=== PATIENT | female | born 1955 | race Caucasian/White ===

== ENCOUNTER 2018-11-23 17:05 | Emergency (ER) | payer OTHER ==
[~2018-11-23] VITALS: Ht 157.5 cm; Wt 101.6 kg
--- NOTE | 2018-11-23 17:21 | NUR ---
pt rec'd to er c/o fell today missed her step rt knee pain and back 8/10 family at bedside vssAWAITING EVALUATION BY ER PROVIDER.
[2018-11-23] MEDS ORDERED: ACETAMINOPHEN 325 MG TABLET ONE (17:38)
--- NOTE | 2018-11-23 17:41 | NUR ---
pt c/o pain rt wrist xrays done of knee and rt hand tyenol 650 mg po given per md order
[2018-11-23] MEDS ORDERED: ACETAMINOPHEN 325 MG TABLET PO ONE (18:00)
--- NOTE | 2018-11-23 18:57 | NUR ---
pt amb to br with assistance voided back to bed
[2018-11-23 19:33] VITALS: BP 154/71
--- NOTE | 2018-11-23 19:33 | NUR ---
Patient discharged to home in stable condition. Written and verbal after care instructions given. Patient verbalizes understanding of instruction.
== END 2018-11-23 19:34 | disposition home or self-care (01) ==
LOC: ER 17:05
DX: S39.012A Strain of muscle, fascia and tendon of lower back, initial encounter (principal); M25.561 Pain in right knee; M25.531 Pain in right wrist; I10 Essential (primary) hypertension; E11.9 Type 2 diabetes mellitus without complications; K21.9 Gastro-esophageal reflux disease without esophagitis; W01.0XXA Fall on same level from slipping, tripping and stumbling without subsequent striking against object, initial encounter; Y93.89 Activity, other specified; Y92.89 Other specified places as the place of occurrence of the external cause; Y99.8 Other external cause status
CPT/HCPCS: 73110; 73564-TC

== ENCOUNTER 2019-08-30 07:11 | Emergency (ER) | payer OTHER ==
[~2019-08-30] VITALS: Ht 152.4 cm; Wt 106.1 kg
--- NOTE | 2019-08-30 07:35 | NUR ---
HTN "checked BP this am was high son got worried", to ER bed 1, hooked to monitor, 190/95mmhg upon arrival. Dr Osman at bedside
--- NOTE | 2019-08-30 07:54 | NUR ---
ABLE SEAMAN AT BEDSIDE
--- NOTE | 2019-08-30 08:00 | NUR ---
chaperoned tech during ekg
[2019-08-30 08:18] VITALS: BP 187/92
--- NOTE | 2019-08-30 08:18 | NUR ---
Patient discharged to home in stable condition. Written and verbal after care instructions given. Patient verbalizes understanding of instruction.
== END 2019-08-30 08:19 | disposition home or self-care (01) ==
LOC: ER 07:13
DX: I10 Essential (primary) hypertension (principal); E11.9 Type 2 diabetes mellitus without complications; K21.9 Gastro-esophageal reflux disease without esophagitis

== ENCOUNTER 2020-08-06 01:21 | Emergency (ER) | payer OTHER ==
[~2020-08-06] VITALS: Ht 162.6 cm; Wt 90.7 kg
--- NOTE | 2020-08-06 01:24 | NUR ---
PT BIBDAUGHTER C/O WORSENING RT LEG PAIN X2 MONTHS, BUT GETTING WORSE OVER THE PAST 2 HOURS. PT AAOX4 BREATHING EVENLY AND UNLABORED. PT STATES SHE CAN "BEAR WEIGHT, BUT IT IS BECOMING HARDER" PT DAUGHTER STATES THAT PT HAS TAKEN PAIN MEDICATION, BUT NO RELIEF. SKIN IS WARM, DRY, AND INTACT. PT ATTACHED TO MONITOR AND POX. PT GIVEN BLANKET AND CALL LIGHT WITHIN REACH.
--- NOTE | 2020-08-06 01:59 | NUR ---
URINE OBTAINED AND SENT TO LAB
--- NOTE | 2020-08-06 02:02 | NUR ---
PT TAKEN TO CT
[2020-08-06 02:08] LABS: BILIRUBIN,URINE NEGATIVE (NEGATIVE); COLOR,URINE YELLOW (YELLOW); LEUKOCYTE ESTERASE ,URINE NEGATIVE (NEGATIVE); NITRITE, URINE NEGATIVE (NEGATIVE); PH,URINE 7.5 (5.0-8.0); PROTEIN,URINE NEGATIVE (NEGATIVE); UGLUCOSE NEGATIVE (NEGATIVE); UROBILINOGEN,URINE 0.2 EU/dL (0.2)
--- NOTE | 2020-08-06 02:11 | NUR ---
RETURNED FROM CT
[2020-08-06] MEDS ORDERED: HYDR-4209 PO (03:04)
--- NOTE | 2020-08-06 03:07 | NUR ---
Patient discharged to home in stable condition. Written and verbal after care instructions given. Patient verbalizes understanding of instruction. Pt ambulatory with a steady gait
[2020-08-06 03:17] VITALS: BP 170/91
== END 2020-08-06 03:07 | disposition home or self-care (01) ==
LOC: ER 01:26
DX: M54.31 Sciatica, right side (principal); R60.0 Localized edema; R10.9 Unspecified abdominal pain; I10 Essential (primary) hypertension; K21.9 Gastro-esophageal reflux disease without esophagitis; E11.9 Type 2 diabetes mellitus without complications
CPT/HCPCS: 93971-TC

== ENCOUNTER 2022-02-08 19:52 | Inpatient (IN) | payer MEDICARE, OTHER ==
[~2022-02-08] VITALS: Ht 157.5 cm; Wt 109.3 kg
[~2022-02-08 19:52] MED LIST: HYDR-4209 PO
--- NOTE | 2022-02-08 20:15 | NUR ---
BIBS FOR C/O R SIDED CP RADIATIING TO R SHOULDER X 2 HOURS. PATIENT ALERT AND ORIENTED X4. AMBULATORY WITH NON LABORED BREATHING IN BED 11 ON MONITOR AND POX, AWAITING MD STALLWORTH.
--- NOTE | 2022-02-08 20:33 | NUR ---
BLOOD COLLECTED AND SENT TO LAB
--- NOTE | 2022-02-08 20:33 | NUR ---
EMT AT BEDSIDE FOR EKG
--- NOTE | 2022-02-08 20:37 | NUR ---
20g IV ESTABLISHED AT . UNABLE TO COLLECTED BLOOD. PHLEBTOMIST INFORMED FOR BLOOD DRAW.
--- NOTE | 2022-02-08 20:38 | NUR ---
GONZALO COLLECTED AND SENT TO LAB
[2022-02-08 21:23] LABS: BASOPHILS % (AUTO) 0.5 % (0.0-2.0); EOSINOPHILS % (AUTO) 1.5 % (0.0-6.0); HEMATOCRIT 42 % (33-45); HEMOGLOBIN 14.4 g/dL (11.5-14.8); LYMPHOCYTES # (AUTO) 1.6 K/uL (0.8-4.8); LYMPHOCYTES % (AUTO) 25.7 % (20.0-44.0); MEAN CORPUSCULAR HGB CONC 34 g/dl (31.0-36.0); MEAN CORPUSCULAR VOLUME 89 fL (82-100); MONOCYTES # (AUTO) 0.7 K/uL (0.1-1.30); NEUTROPHILS # (AUTO) 3.8 K/uL (1.8-8.9); NEUTROPHILS % (AUTO) 61.3 % (43.0-81.0); PLATELET COUNT (AUTO) 158 K/uL (150-450); RED BLOOD CELL COUNT(AUTO) 4.77 MIL/uL (4.0-5.2); WHITE BLOOD COUNT (AUTO) 6.1 K/uL (4.3-11.0)
[2022-02-08 21:43] LABS: CARBON DIOXIDE 30 mmol/L (21-32); CHLORIDE 103 mmol/L (98-107); CREATININE 0.7 mg/dL (0.6-1.3); GLUCOSE 166 mg/dL (74-106); POTASSIUM 3.5 mmol/L (3.5-5.1); SODIUM SERUM 139 mmol/L (136-145); UREA NITROGEN, BLOOD 18 mg/dL (7-18)
--- NOTE | 2022-02-08 22:52 | NUR ---
BED 117-2
[2022-02-08] MEDS ORDERED: MAGNESIUM HYDROXIDE 30 ML UDC PO PRN (23:00)
[2022-02-08] MEDS ORDERED: hydrALAZINE HCL IV 20 MG VIAL IV PRN (23:00)
[2022-02-08] MEDS ORDERED: ZOLPIDEM TARTRATE 5 MG TABLET PO PRN (23:00)
[2022-02-08] MEDS ORDERED: Z GUARD REMEDY 4 OZ OINT TP PRN (23:00)
[2022-02-08] MEDS ORDERED: INSULIN REGULAR, HUMAN 100 UNIT/ML 3 ML VIAL SQ PRN (23:00)
[2022-02-08] MEDS ORDERED: NITROGLYCERIN 0.4 MG/TAB BOTTLE SL ONE ×2 (23:00)
[2022-02-08] MEDS ORDERED: ENOXAPARIN SODIUM 40 MG/0.4 ML DISP.SYRIN SQ SCH (23:00)
[2022-02-08] MEDS ORDERED: MORPHINE SULFATE INJ 2 MG/ML DISP.SYRIN IV PRN (23:00)
[2022-02-08] MEDS ORDERED: ONDANSETRON HCL/PF 4 MG/2 ML VIAL IVP PRN (23:00)
[2022-02-08] MEDS ORDERED: ACETAMINOPHEN 325 MG TABLET PO PRN (23:00)
[2022-02-08] MEDS ORDERED: MAG HYDROX/AL HYDROX/SIMETH 30 ML UDC PO PRN (23:00)
[2022-02-08] MEDS ORDERED: DEXTROSE 50%-WATER 50 ML DISP.SYRIN IV PRN (23:00)
--- NOTE | 2022-02-08 23:39 | NUR ---
CALLED FOR REPORT. RN WILL CALL BACK
--- NOTE | 2022-02-09 00:02 | NUR ---
REPORT GIVEN TO SOURAV
--- NOTE | 2022-02-09 00:15 | NUR ---
0015 Admitted from ER 66 year old female via [facility] with Dx of Chest pain. Patient is awake and oriented x 4. Able to ambulate to bed from [facility] and to bathroom without assistance. Wolof speaking. On room air. Denies chest pain when asked. Vital signs taken and recorded. Admission care and assessment done. No skin breakdown noted when assessed. PIV on left hand intact with no signs of infiltration noted. Connected to security monitor. NSR in the 70s no ectopies. Kept comfortable. Call light placed within reach and instructed patient to call for assistance.
--- NOTE | 2022-02-09 00:21 | NUR ---
PT TRANSPORTED TO ROOM 117-2 ON CARDIAC PER ACLS
[2022-02-09 04:00] VITALS: BP 136/77
--- NOTE | 2022-02-09 05:59 | NUR ---
RN NOTE PT IN BED, SLEEPING. SAMI BUT CAN SPEAK SIMPLE BOLIVIAN. CURRENTLY ON RA, TOLERATING WELL. SR ON TELE MONITOR WITH HR >60. O2 SAT AT 97%. NO S/SX OF ACUTE RESPI DISTRESS NOTED AT THIS TIME. PT DENIES PAIN BUT SAYS SHE HAS HEADACHE. PT TOOK NITROGLYCERIN PRIOR TO GOING TO HOSPITAL. ALL VS STABLE. SKIN INTACT, NO PRESSURE ULCER NOTED. AMBULATORY WITH BRP. AWAITING CARDIO CONSULT TODAY. WILL ENDORSE TO AM SHIFT NURSE FOR BRENDA.
[2022-02-09 06:30] LABS: BASOPHILS % (AUTO) 0.2 % (0.0-2.0); EOSINOPHILS % (AUTO) 1.9 % (0.0-6.0); HEMATOCRIT 41 % (33-45); HEMOGLOBIN 14.2 g/dL (11.5-14.8); LYMPHOCYTES # (AUTO) 2.1 K/uL (0.8-4.8); MEAN CORPUSCULAR HGB CONC 34 g/dl (31.0-36.0); MEAN CORPUSCULAR VOLUME 88 fL (82-100); MONOCYTES # (AUTO) 0.5 K/uL (0.1-1.30); MONOCYTES % (AUTO) 8.2 % (2.0-12.0); NEUTROPHILS # (AUTO) 3.6 K/uL (1.8-8.9); NEUTROPHILS % (AUTO) 56.7 % (43.0-81.0); PLATELET COUNT (AUTO) 167 K/uL (150-450); RED BLOOD CELL COUNT(AUTO) 4.71 MIL/uL (4.0-5.2); WHITE BLOOD COUNT (AUTO) 6.4 K/uL (4.3-11.0)
--- NOTE | 2022-02-09 07:00 | NUR ---
RN NOTE RECEIVED PATIENT IN BED RESTING ALERT ORIENTED X4 VERBALLY RESPONSIVE BRAZILIAN SPEAKING,ON ROOM AIR O2:96% IV SITE IS ON LEFT HAND INTACT PATENT,AMBULATORY,CONTIENT BOWEL/BLADDER,SAFETY MEASURE IMPLEMENT BED IN LOW POSITION AND LOCKED,CALL LIGHT WITHIN REACH CONTINUE TO MONITOR.
[2022-02-09 07:01] LABS: CALCIUM, SERUM 8.8 mg/dL (8.5-10.1); CREATININE 0.6 mg/dL (0.6-1.3); PHOSPHORUS 3.6 mg/dL (2.5-4.9); POTASSIUM 3.4 mmol/L (3.5-5.1)
[2022-02-09 07:11] LABS: THYROID STIMULATING HORMONE 7.514 uIU/mL (0.358-3.74)
[2022-02-09] MEDS ORDERED: BLOOD SUGAR DIAGNOSTIC 1 EACH STRIP IN SCH (07:30)
[2022-02-09 08:00] VITALS: BP 146/84
[2022-02-09] MEDS ORDERED: ASPI-1420 PO (08:04)
[2022-02-09] MEDS ORDERED: ERGO500093 PO (08:04)
[2022-02-09] MEDS ORDERED: FURO40TA5 PO (08:04)
[2022-02-09] MEDS ORDERED: SIMV10TA98 PO (08:04)
[2022-02-09] MEDS ORDERED: AMLO-362 PO (08:04)
[2022-02-09] MEDS ORDERED: PROP20TA19 PO (08:04)
[2022-02-09] MEDS ORDERED: PANTOPRAZOLE 40 MG VIAL IV SCH (09:00)
[2022-02-09] MEDS ORDERED: ASPIRIN 81 MG TAB.CHEW PO SCH (09:00)
[2022-02-09] MEDS ORDERED: VALSARTAN 80 MG TABLET PO SCH (09:30)
[2022-02-09] MEDS ORDERED: ATORVASTATIN 40 MG TABLET PO SCH (09:30)
[2022-02-09 09:52] VITALS: BP 146/84
[2022-02-09] MEDS ORDERED: POTASSIUM CHLORIDE 20 MEQ TAB.PRT.SR PO SCH (10:00)
--- NOTE | 2022-02-09 11:56 | NUR ---
BRANCH ASSOCIATE TELLER NOTE PATIENT DISCHARGE HOME IN STABLE CONDITION,AFTER HER DAUGHTER SIGNED ALL DISCHARGE PAPER AND BELONGINGS,ALERT ORIENTED X4 VERBALLY RESPONSIVE ON ROOM AIR O2:97% NO SOB NOT ACUTE DISTRESS NOTED,SHE REFUSED HEART SCAN,REMOVED IV LINE,NO BLEEDING NOTED,SHE LEFT HOSPITAL WITH HER DAUGHTERS BY PRIVATE CAR
== END 2022-02-09 12:10 | disposition home or self-care (01) | DRG 303 ==
LOC: ER 20:17 → TELE1 23:26
PROVIDERS: ADMIT Nurse Practitioner Acute Care; ATTEND Student in an Organized Health Care Education/Training Program
DX: I25.10 Atherosclerotic heart disease of native coronary artery without angina pectoris (principal); Z68.41 Body mass index [BMI] 40.0-44.9, adult; E11.9 Type 2 diabetes mellitus without complications; I10 Essential (primary) hypertension; E66.01 Morbid (severe) obesity due to excess calories; K21.9 Gastro-esophageal reflux disease without esophagitis; Z79.82 Long term (current) use of aspirin; Z79.899 Other long term (current) drug therapy; M19.90 Unspecified osteoarthritis, unspecified site; G47.33 Obstructive sleep apnea (adult) (pediatric); Z82.49 Family history of ischemic heart disease and other diseases of the circulatory system
CPT/HCPCS: 36415; 71045-TC; 80048-TC; 80061-TC; 82962-TC; 83735-TC; 83880; 84100-TC; 84443-TC; 84484-TC; 85025-TC; 85378-TC; 87081-TC; C9113; C9803; G0378; J1650; J1815

== ENCOUNTER 2024-05-08 03:16 | Emergency (ER) | payer MEDICARE, OTHER ==
[~2024-05-08 03:16] MED LIST changes: +AMLO-362 PO; +ASPI-1420 PO; +ERGO500093 PO; +FURO40TA5 PO; -HYDR-4209 PO; +PROP20TA19 PO; +SIMV10TA98 PO
== END 2024-05-08 04:45 | disposition left against medical advice (07) ==
LOC: ER 03:17
DX: Z53.21 Procedure and treatment not carried out due to patient leaving prior to being seen by health care provider (principal)

== ENCOUNTER 2024-05-10 20:22 | Emergency (ER) | payer MEDICARE, OTHER | END 2024-05-10 23:31 | disposition left against medical advice (07) | LOC: ER 20:22 | DX: R03.0 Elevated blood-pressure reading, without diagnosis of hypertension (principal); Z53.21 Procedure and treatment not carried out due to patient leaving prior to being seen by health care provider ==

== ENCOUNTER 2024-11-13 17:36 | Emergency (ER) | payer MEDICARE, OTHER ==
[~2024-11-13] VITALS: Ht 154.9 cm; Wt 105.7 kg
[2024-11-13 19:01] VITALS: BP 155/77; TEMP 97.9; O2SAT 97
== END 2024-11-13 19:01 | disposition home or self-care (01) ==
LOC: ER 17:48
DX: M25.562 Pain in left knee (principal); I10 Essential (primary) hypertension; E11.9 Type 2 diabetes mellitus without complications; K21.9 Gastro-esophageal reflux disease without esophagitis; M17.12 Unilateral primary osteoarthritis, left knee; Z79.82 Long term (current) use of aspirin; Z79.899 Other long term (current) drug therapy; Z86.718 Personal history of other venous thrombosis and embolism
CPT/HCPCS: 93971-TC

== ENCOUNTER 2025-01-08 14:31 | Emergency (ER) | payer MEDICARE, OTHER ==
[~2025-01-08] VITALS: Ht 160 cm; Wt 109.8 kg
[2025-01-08] MEDS ORDERED: LIDOCAINE 1%-EPI 1:100,000 20 ML VIAL ONE (14:44)
[2025-01-08] MEDS ORDERED: BACI/NEOM/POLY B OINT PKT 1 UDPKT PACKET ONE (14:50)
[2025-01-08] MEDS ORDERED: TDAP [DIPH/PERTUSSIS/TET] 0.5 ML VIAL IM ONE (14:50)
[2025-01-08] MEDS: BACI/NEOM/POLY B OINT PKT 1 UDPKT PACKET TP ONE (14:54)
[2025-01-08] MEDS: LIDOCAINE 1%-EPI 1:100,000 50 ML VIAL IJ ONE (14:54)
[2025-01-08] MEDS ORDERED: GELATIN SPONGE,ABSORBABLE 1 EA SPONGE TP ONE ×2 (14:56→17:18)
[2025-01-08] MEDS ORDERED: CELLULOSE,OXIDIZED 1 PKT EACH MC ONE (15:00)
[2025-01-08] MEDS: TDAP [DIPH/PERTUSSIS/TET] 0.5 ML VIAL IM ONE (15:33)
[2025-01-08] MEDS ORDERED: ACETAMINOPHEN ES 500 MG TABLET ONE (15:53)
[2025-01-08] MEDS: ACETAMINOPHEN ES 500 MG TABLET PO ONE (15:55)
[2025-01-08 15:56] LABS: PLATELET COUNT (AUTO) 155 K/uL (150-450); RED BLOOD CELL COUNT(AUTO) 4.53 MIL/uL (4.0-5.2); RED CELL DISTRIBUTION WIDTH 13.2 % (11.5-15.0); WHITE BLOOD COUNT (AUTO) 6.0 K/uL (4.3-11.0)
[2025-01-08 16:03] LABS: CALCIUM, SERUM 9.0 mg/dL (8.5-10.1); CREATININE 0.7 mg/dL (0.6-1.3); SODIUM SERUM 143.0 mmol/L (136-145); UREA NITROGEN, BLOOD 19.0 mg/dL (7-18)
[2025-01-08 16:09] LABS: INR 1.17 (0.91-1.10)
[2025-01-08] MEDS ORDERED: ONDANSETRON HCL/PF 4 MG/2 ML VIAL ONE (16:41)
[2025-01-08] MEDS: IV NS 0.9% 1,000 ML BAG IV ONE (16:44)
[2025-01-08] MEDS: ONDANSETRON HCL/PF 4 MG/2 ML VIAL IV ONE (16:45)
[2025-01-08 16:48] VITALS: TEMP 97.9
[2025-01-08] MEDS ORDERED: GLIM1TAB18 PO (17:25)
[2025-01-08 18:49] VITALS: BP 154/76; O2SAT 98
== END 2025-01-08 18:49 | disposition home or self-care (01) ==
LOC: ER 14:41
DX: S01.01XA Laceration without foreign body of scalp, initial encounter (principal); I10 Essential (primary) hypertension; W07.XXXA Fall from chair, initial encounter; E11.9 Type 2 diabetes mellitus without complications; R51.9 Headache, unspecified; K21.9 Gastro-esophageal reflux disease without esophagitis; Z79.899 Other long term (current) drug therapy; Z86.718 Personal history of other venous thrombosis and embolism; W22.03XA Walked into furniture, initial encounter; Y93.89 Activity, other specified; Y92.89 Other specified places as the place of occurrence of the external cause; Y99.8 Other external cause status
CPT/HCPCS: 12002; 36415; 70450; 80048; 85025; 85730; 86850; 90471; 90715; 96374; 99285; A6403; J2405; J3490; J7030

== ENCOUNTER 2025-01-12 17:47 | Emergency (ER) | payer MEDICARE, OTHER ==
[~2025-01-12] VITALS: Ht 160 cm; Wt 109.8 kg
[~2025-01-12 17:47] MED LIST changes: -ASPI-1420 PO; -ERGO500093 PO; -FURO40TA5 PO; +GLIM1TAB18 PO; -PROP20TA19 PO; -SIMV10TA98 PO
[2025-01-12 17:57] VITALS: BP 165/88; TEMP 98
[2025-01-12 19:20] VITALS: O2SAT 95
== END 2025-01-12 19:30 | disposition home or self-care (01) ==
LOC: ER 17:49
DX: S01.01XD Laceration without foreign body of scalp, subsequent encounter (principal); I10 Essential (primary) hypertension; E11.9 Type 2 diabetes mellitus without complications; K21.9 Gastro-esophageal reflux disease without esophagitis; Z79.899 Other long term (current) drug therapy; Z86.718 Personal history of other venous thrombosis and embolism; X58.XXXD Exposure to other specified factors, subsequent encounter
CPT/HCPCS: 99282; A6403

== ENCOUNTER 2025-01-20 17:41 | Emergency (ER) | payer MEDICARE, OTHER ==
[~2025-01-20] VITALS: Ht 152.4 cm; Wt 90.7 kg
[2025-01-20 17:51] VITALS: BP 151/88; TEMP 98.3
[2025-01-20 18:18] VITALS: O2SAT 98
== END 2025-01-20 18:23 | disposition home or self-care (01) ==
LOC: ER 17:46
DX: S01.01XD Laceration without foreign body of scalp, subsequent encounter (principal); E11.9 Type 2 diabetes mellitus without complications; Z86.718 Personal history of other venous thrombosis and embolism; Z79.899 Other long term (current) drug therapy; X58.XXXD Exposure to other specified factors, subsequent encounter

== ENCOUNTER 2025-02-06 16:35 | Emergency (ER) | payer MEDICARE, OTHER ==
[~2025-02-06] VITALS: Ht 162.6 cm; Wt 107.5 kg
[2025-02-06] MEDS ORDERED: MUPI15CR TP (17:50)
[2025-02-06] MEDS ORDERED: CLIN300C12 PO (17:50)
[2025-02-06] MEDS: MUPIROCIN OINT 2% 22 GM TUBE TP ONE (18:03)
[2025-02-06 18:18] VITALS: BP 155/87; TEMP 98.2; O2SAT 98
== END 2025-02-06 18:19 | disposition home or self-care (01) ==
LOC: ER 16:41
DX: S01.01XD Laceration without foreign body of scalp, subsequent encounter (principal); E11.9 Type 2 diabetes mellitus without complications; I11.9 Hypertensive heart disease without heart failure; K21.9 Gastro-esophageal reflux disease without esophagitis; L08.9 Local infection of the skin and subcutaneous tissue, unspecified; Z79.899 Other long term (current) drug therapy; Z86.718 Personal history of other venous thrombosis and embolism; Z48.00 Encounter for change or removal of nonsurgical wound dressing; X58.XXXD Exposure to other specified factors, subsequent encounter
CPT/HCPCS: 99283; A6403